=== PATIENT | male | born 1990 | race African-American/Black ===

== ENCOUNTER 2016-10-27 10:32 | Emergency (ER) | payer OTHER ==
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
[~2016-10-27 10:32] MED LIST: FLEXERIL PO; VICODIN 5/500 T1 TAB PO
== END 2016-10-27 11:40 | disposition home or self-care (01) ==
LOC: CFTX 10:32 → CED 10:32 → CFTX 11:30
DX: S29.012A Strain of muscle and tendon of back wall of thorax, initial encounter (principal); S39.012A Strain of muscle, fascia and tendon of lower back, initial encounter; S80.02XA Contusion of left knee, initial encounter; V43.92XA Unspecified car occupant injured in collision with other type car in traffic accident, initial encounter; Y92.410 Unspecified street and highway as the place of occurrence of the external cause
CPT/HCPCS: 29530; 72040; 72072; 73562; 96372; 99283; J1885

== ENCOUNTER 2016-11-22 13:34 | Emergency (ER) | payer OTHER ==
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
== END 2016-11-22 15:33 | disposition home or self-care (01) ==
LOC: CED 13:34 → CFTX 13:34
DX: S13.4XXA Sprain of ligaments of cervical spine, initial encounter (principal); S33.5XXA Sprain of ligaments of lumbar spine, initial encounter; Z79.899 Other long term (current) drug therapy; V49.40XA Driver injured in collision with unspecified motor vehicles in traffic accident, initial encounter
CPT/HCPCS: 72040; 72100; 99283